=== PATIENT | male | born 1945 | race Caucasian/White ===

== ENCOUNTER → 2020-12-12 | Outpatient (CLI) | payer MEDICARE ==
--- NOTE | 2021-02-01 03:34 | ECWPNPC ---
PATIENT NAME: DANNY FLOOD SR : 1945 GENDER: MALE VISIT DATE: 12/12/2020 DISCHARGE DATE: 12/12/20840 VISIT LOCKED DATE TIME: PHYSICIAN: LENARD PALM RESOURCE: LENARD PALM REASON FOR APPOINTMENT 1. CHRONIC NECK/BACK PAIN HISTORY OF PRESENT ILLNESS GENERAL: [facility] TELEHEALTH VISIT- 75-YEAR-OLD MALE IN FOR CONSULT REGARDING CURRENT MEDICATION REGIMEN. HE CURRENTLY RATES HIS PAIN AT AN 8 OUT OF 10 AND DESCRIBES IT A CONTINUOUS NEEDLE FEELING. PATIENT'S CENTRAL PATCH WAS RECENTLY INCREASED 200 MCG DAILY. HE IS CURRENTLY BEING PRESCRIBED HYDROCODONE 10/325 MG EVERY 4 HOURS NEEDED FOR PAIN. WHEN ASKED PATIENT ADMITS THAT THE HYDROCODONE IS HELPFUL HOWEVER IT DOES NOT LAST. PATIENT WAS ALSO RECENTLY DIAGNOSED WITH STAGE IV PROSTATE CANCER. FALL RISK SCREENING: SCREENING : NO FALLS REPORTED IN THE LAST YEAR. PAIN SCREENING: PATIENT HAS A COMPLAINT OF ACUTE OR CHRONIC PAIN :YES LOCATION OF PAIN:HEAD INTENSITY OF PAIN (SCALE OF 1 TO 10):8 WHAT DOES YOUR PAIN FEEL LIKE:CONTINOUS NEEDLES DURATION:CONSTANT, AWAKENS FROM SLEEP PAIN IS INCREASED BY:OTHERS STRESS PAIN IS DECREASED BY:USE OF PAIN MEDICATIONS TREATMENT/MEDICATIONS USED TO MANAGE PAIN:OPIOIDS HYDROCODONE NURSING NOTE: -. PAIN CENTER INTAKE QUESTIONS: DO YOU HAVE A HISTORY OF MRSA? :NO DO YOU TAKE A BLOOD THINNERS? :NO DO YOU HAVE ANY BLEEDING DISORDERS? :NO ANY NEW NUMBNESS OR WEAKNESS IN YOUR LEGS OR ARMS? :NO ANY PACEMAKER,DEFIBRILLATOR, OR DORSAL COLUMN STIMULATOR? :NO DO YOU HAVE ANY RASHES OR OPEN SORES? :NO ARE YOU ALLERGIC TO IV DYE? :NO ARE YOU DIABETIC? :NO ANY NEW PROBLEMS WITH YOUR MEDICATIONS? :NO HAVE YOU RECEIVED A VACCINE IN THE PAST 30 DAYS? :NO DO YOU PLAN TO RECEIVE A VACCINE IN THE NEXT 21 DAYS? :NO DO YOU NEED ANY PRESCRIPTION? :NO DO YOU TAKE ANY IMMUNOSUPPRESSIVE MEDICATIONS? :NO IS THERE A CHANCE YOU COULD BE ? :NO ARE YOU BREAST FEEDING? :NO CURRENT MEDICATIONS TAKING XTANDI 40 MG CAPSULE 2 CAPSULES ORALLY ONCE A DAY TAKING FENTANYL 100 MCG/HR PATCH 72 HOUR 1 PATCH TO SKIN TRANSDERMAL , NOTES: 07-31-16 TAKING ALLOPURINOL 300 MG TABLET 1 TABLET ORALLY ONCE DAILY, NOTES: 08-02-16 AM TAKING ANORO ELLIPTA 62.5-25 MCG/INH AEROSOL POWDER BREATH ACTIVATED 1 PUFF INHALATION ONCE A DAY, NOTES: NONE TAKING ENALAPRIL MALEATE 20 MG TABLET 1 TABLET ORALLY TWICE DAILY, NOTES: 08-02-16 AM TAKING METOPROLOL SUCCINATE 100 MG 1 TAB ONCE DAILY, NOTES: 08-02-16 AM TAKING OMEPRAZOLE 40 MG CAPSULE DELAYED RELEASE 1 CAPSULE ORALLY TWICE DAILY, NOTES: 08-02-16 AM TAKING POTASSIUM CHLORIDE 10 MEQ PO TWICE DAILY, NOTES: 08-02-16 AM TAKING VENTOLIN HFA 108 (90 BASE) MCG/ACT AEROSOL SOLUTION 2 PUFFS NEEDED INHALATION FOUR TIMES DAILY NEEDED, NOTES: 08-02-16 PM TAKING VERAPAMIL HCL ER 180 MG TABLET EXTENDED RELEASE 1 TABLET ORALLY ONCE A DAY, NOTES: 08-02-16 AM TAKING VITAMIN B6 100 MG TABLET 1 TABLET ORALLY ONCE A DAY, NOTES: 08-02-16 TAKING VITAMIN D 96660 TABLET 1 TABLET ORALLY ONCE A WEEK, NOTES: 08-02-16 TAKING HYDROCODONE-ACETAMINOPHEN 10-325 MG TABLET 1 TABLET NEEDED ORALLY EVERY 4 HOURS NEEDED, NOTES: 08-03-16 0900 NOT-TAKING ASPIRIN 325 MG TABLET DELAYED RELEASE 1 TABLET ORALLY ONCE A DAY, NOTES: 08-03-16 8030 NOT-TAKING FLOMAX 0.4 MG CAPSULE ORALLY ONCE DAILY, NOTES: 08-02-16 NOT-TAKING HYDROCHLOROTHIAZIDE 12.5 MG TABLET 1 TABLET ORALLY ONCE A DAY, NOTES: 08-02-16 NOT-TAKING PROSCAR 5 MG TABLET 1 TABLET ORALLY ONCE A DAY, NOTES: 08-02-16 NOT-TAKING SIMVASTATIN 40 MG TABLET ORALLY ONCE A DAY, NOTES: 08-02-16 NOT-TAKING TOPAMAX 50 MG TABLET 1 TABLET ORALLY TWICE A DAY, NOTES: 08-02-16 NOT-TAKING OXYCODONE-ACETAMINOPHEN 5-325 MG TABLET 1 TABLET NEEDED ORALLY EVERY 4 HOURS NEEDED, NOTES: 07/16/16 NOT-TAKING VALIUM 10 MG TABLET 1 ORALLY 1 TAB 1HR PRE PROC. MDD1, NOTES: 07/20/16 1000 NOT-TAKING OXYCODONE HCL 10 MG TABLET 1 ORALLY 1 TAB 1HR PRE PROCEDURE MDD1, NOTES: 07/20/16 1000 NOT-TAKING NAPROXEN 500 MG TABLET 1 TABLET NEEDED ORALLY EVERY 12 HRS MEDICATION LIST REVIEWED AND RECONCILED WITH THE PATIENT PAST MEDICAL HISTORY HEADACHE, HTN, NECK PAIN, ABDOMINAL PAIN, CAD, BACK PAIN, COPD, GERD, HYPERLIPIDEMIA COMPLETELY BLOCKED RIGHT CAROTID ARTERY STAGE 4 PROSTATE CANCER ALLERGIES CIPRO AVELOX DARVOCET-N 100: HALLUCINATIONS SURGICAL HISTORY CHOLECYSTECTOMY 09/2007 REMOVAL RECTAL ABSCESS AND FISTULA 2004 CATARACT LENS LEFT EYE PROSTATE SURGERY 10/2020 FAMILY HISTORY FATHER: , DIAGNOSED WITH OTHER MALIGNANT NEOPLASM OF UNSPECIFIED SITE MOTHER: , UNSPECIFIED CEREBRAL ARTERY OCCLUSION WITH CEREBRAL INFARCTION, DIABETES 2 SON(S) , 3 DAUGHTER(S) - HEALTHY. BROTHER HAS LEUKEMIA. SOCIAL HISTORY GENERAL: TOBACCO USE ARE YOU A:FORMER SMOKER HOW LONG HAS IT BEEN SINCE YOU LAST SMOKED?5-10 YEARS VAPORNO E-CIGARETTENO LATEX QUESTIONNAIRE LATEX ALLERGY : HAVE YOU EVER DEVELOPED ANY TYPE OF REACTION AFTER HANDLING LATEX PRODUCTS SUCH RUBBER GLOVES, CONDOMS, DIAPHRAGMS, BALLOONS, SOCKS, OR UNDERWEAR?NO LATEX ALLERGY : HAVE YOU EVER DEVELOPED ANY TYPE OF REACTION DURING OR AFTER DENTAL APPOINTMENT, VAGINAL/RECTAL EXAMINATION, SURGICAL PROCEDURE, OR ANY OTHER EXPOSURE?NO LATEX RISK : HAVE YOU EVER HAD ANY DIFFICULTY BREATHING OR HIVES AFTER EATING OR HANDLING ANY FRUITS, OR VEGETABLES; SUCH KIWI, BANANAS, STONE FRUITS, OR CHESTNUTSNO LATEX RISK : DO YOU HAVE A PREVIOUS PERSONAL HISTORY OF MORE THAN NINE SURGERIES, SPINA BIFIDA, OR REPEATED CATHERIZATIONS? NO LATEX RISK : ARE YOU FREQUENTLY EXPOSED TO LATEX PRODUCTS IN YOUR OCCUPATION?NO DATE ASKED : 12/12/2020 ALCOHOL SCREENING DID YOU HAVE A DRINK CONTAINING ALCOHOL IN THE PAST YEAR?NO POINTS0 INTERPRETATIONNEGATIVE RECREATIONAL DRUG USE DRUG USE?NO PATIENT DENIES USE OF ANY ILLEGAL SUBSTANCE INCLUDING MARIJUANA OR COCAINE. CAFFEINE CAFFEINE USE?YES HOW OFTEN AND HOW MUCH? 4-5 CUPS COFFEE PER DAY LEARNING BARRIERS / SPECIAL NEEDS BARRIERS TO LEARNING?NO HEARING IMPAIRED?NO VISION IMPAIRED?NO COGNITIVELY IMPAIRED?NO READINESS TO LEARN?NO LEARNING PREFERENCES?NO LEARNING CAPABILITIES PRESENT?YES EMOTIONAL BARRIERS?NO SPECIAL DEVICES?YES :CANE, WALKER, WHEELCHAIR BRACE MAKER NEEDED?NO - PFS REFERRAL NEEDED?NO CLERGY REFERRAL NEEDED?NO PUBLIC HEALTH REFERRAL NEEDED?NO WAS THE PROVIDER NOTIFIED OF ANY PERTINENT INFO?NO ADVANCE DIRECTIVE HEALTH CARE PROXY? YES , POWER OF TOUR AGENT? NO , NAME OF HCP LEIDA FLOOD, CONTACT # FOR HCP [phone], IF YES, DO YOU HAVE A COPY WITH YOU? NO , IF NO, WOULD YOU LIKE MORE INFORMATION? NO , DO YOU HAVE A DNR? NO , LIVING WILL? NO , IF YES, DO YOU HAVE A COPY WITH YOU? NO. HOSPITALIZATION/MAJOR DIAGNOSTIC PROCEDURE NO HOSPITALIZATION HISTORY. REVIEW OF SYSTEMS CONSTITUTIONAL: ANY RECENT FEVER NO . CHILLS NO . WEIGHT CHANGE OF UNKNOWN REASONS NO . GASTROENTEROLOGY: NEW UNEXPLAINABLE CHANGES IN BOWEL CONTROL NO . CONSTIPATION NO . GENITOURINARY: ANY NEW CHANGE IN BLADDER CONTROL? NO . NEUROLOGY: NEW ONSET DIZZINESS OR NEUROLOGICAL CHANGES NOT MENTIONED NO . NEW NUMBNESS OR PAIN PATTERNS NOT MENTIONED AND PERTINENT TO TODAY'S VISIT NO . CARDIOLOGY: NEW CHEST PRESSURE NO . PATIENT DENIES NO . RESPIRATORY: UNEXPLAINABLE COUGH NO . NEW SHORTNESS OF BREATH NO . VITAL SIGNS WT 216 LBS, HT 74 IN, BMI 27.73 INDEX, REVIEWED BY: ROSITA NOT OBTAINED DUE TO TELEVISIT. NOAH HILL MA. EXAMINATION GENERAL EXAMINATION: GENERALNO ACUTE DISTRESS, WELL NOURISHED AND HYDRATED. PSYCHAPPROPRIATE MOOD AND AFFECT . ASSESSMENTS CERVICALGIA OF [id number] REGION - M54.2 (PRIMARY) TREATMENT CERVICALGIA OF [id number] REGION NOTES: 75-YEAR-OLD MALE IN FOR CONSULT REGARDING CURRENT MEDICATION REGIMEN. GIVEN PRESENTING SYMPTOMS AND RECENT INCREASE IN FENTANYL PATCH RECOMMEND STOPPING HYDROCODONE AND STARTING OXYCODONE 10/325 MG 4 TIMES A DAY. INFORMED PATIENT OF POTENTIAL SWITCHED OXYCODONE AND HE WAS AMENABLE TO THIS. GIVEN TIME TO ASK QUESTIONS AND EXPRESS CONCERNS. DISPOSITION & COMMUNICATION FOLLOW UP WITH [facility] (REASON: CHRONIC NECK PAIN) ELECTRONICALLY SIGNED BY JEISON ORTIZ ON 01/31/2021 AT 08:36 AM EST DISCLAIMER : THIS IS A VISIT SUMMARY EXTRACTED FROM THE [employer] CHART. IT IS NOT A COPY OF THE [employer] PROGRESS NOTE. DORIS
== END ==
LOC: M PAIN 15:00
PROVIDERS: ATTEND Family Medicine
DX: M54.2 Cervicalgia (principal); I10 Essential (primary) hypertension; I25.10 Atherosclerotic heart disease of native coronary artery without angina pectoris; J44.9 Chronic obstructive pulmonary disease, unspecified; K21.9 Gastro-esophageal reflux disease without esophagitis; E78.5 Hyperlipidemia, unspecified; Z87.891 Personal history of nicotine dependence; Z79.891 Long term (current) use of opiate analgesic; Z79.899 Other long term (current) drug therapy; Z88.1 Allergy status to other antibiotic agents; Z88.5 Allergy status to narcotic agent

== ENCOUNTER 2021-04-15 17:33 | Inpatient (IN) | payer MEDICARE ==
[~2021-04-15] VITALS: Ht 182.9 cm; Wt 81.0 kg
--- NOTE | 2021-04-15 20:40 | IPNPDOC ---
Text Note Date of Service The patient was seen on 04/15/21. KEVIN BATISTA MD April 15, 2021 20:40
[2021-04-15] MEDS ORDERED: METOPROLOL 5 MG/5 ML VIAL IV STA (20:54)
[2021-04-15] MEDS ORDERED: NS 500 ML IV ONE (20:55)
[2021-04-15 21:00] VITALS: BP 176/80
[2021-04-15] MEDS ORDERED: MAALOX 30 ML SUSP *UDC PO PRN (21:20)
[2021-04-15] MEDS ORDERED: MOM 30ML SUSPENSION UDC PO PRN (21:20)
[2021-04-15 21:39] LABS: BASO # 0.1 10^3/uL (0.0-0.2); BASO % 0.8 % (0.0-1.0); EOS # 0.1 10^3/uL (0.0-0.5); EOS % 1.3 % (0.0-3.0); HEMATOCRIT 39.5 % (42.0-52.0); HEMOGLOBIN 13.6 g/dl (13.5-17.5); LYMPH # 1.1 10^3/uL (1.5-5.0); LYMPH % 16.9 % (24.0-44.0); MEAN CORPUSCULAR HEMOGLOBIN 30.1 pg (27.0-33.0); MEAN CORPUSCULAR HGB CONC 34.4 g/dl (32.0-36.5); MEAN CORPUSCULAR VOLUME 87.4 fl (80.0-96.0); MONO % 15.3 % (2.0-8.0); NEUTROPHILS # 4.2 10^3/uL (1.5-8.5); NEUTROPHILS % 65.4 % (36.0-66.0); PLATELET COUNT, AUTOMATED 205 10^3/uL (150-450); RED BLOOD COUNT 4.52 10^6/uL (4.30-6.10); WHITE BLOOD COUNT 6.4 10^3/uL (4.0-10.0)
[2021-04-15 21:57] LABS: ERYTHROCYTE SEDIMENTATION RATE 18 mm/hr (0-20)
[2021-04-15] MEDS ORDERED: ZYLO300T6 PO (21:59)
[2021-04-15] MEDS ORDERED: HYDR-4517 PO (21:59)
[2021-04-15] MEDS ORDERED: HYDR-3910 PO (21:59)
[2021-04-15] MEDS ORDERED: VERA120T4 PO (21:59)
[2021-04-15] MEDS ORDERED: FENT100D25 TD (21:59)
[2021-04-15] MEDS ORDERED: ENAL20TA11 PO (21:59)
[2021-04-15] MEDS ORDERED: FLOM0.4C39 PO (21:59)
[2021-04-15] MEDS ORDERED: ASPI-1 PO (21:59)
[2021-04-15] MEDS ORDERED: VENTAER INH (21:59)
[2021-04-15] MEDS ORDERED: BICA50TA9 PO (21:59)
[2021-04-15] MEDS ORDERED: METO1TAB33 PO (21:59)
[2021-04-15] MEDS ORDERED: FURO20TA2 PO (21:59)
[2021-04-15] MEDS ORDERED: CRES10TA PO (21:59)
[2021-04-15] MEDS ORDERED: ZYTI250T PO (21:59)
[2021-04-15] MEDS ORDERED: OMEP-221 PO (21:59)
[2021-04-15] MEDS ORDERED: POTA10TA16 PO (21:59)
[2021-04-15] MEDS ORDERED: PRED5TA PO (21:59)
[2021-04-15 22:05] LABS: ALBUMIN 3.4 GM/DL (3.2-5.2); ALT/SGPT 10 U/L (12-78); BILIRUBIN,TOTAL 1.3 MG/DL (0.2-1.0); BLOOD UREA NITROGEN 17 MG/DL (7-18); C REACTIVE PROTEIN QUANTITATIV 1.03 MG/DL (0.00-0.30); CARBON DIOXIDE LEVEL 23 MEQ/L (21-32); CHLORIDE LEVEL 104 MEQ/L (98-107); CREATININE FOR GFR 0.81 MG/DL (0.70-1.30); GLOMERULAR FILTRATION RATE > 60.0 (>42); GLUCOSE, FASTING 84 MG/DL (70-100); NT-PRO BNP 1013 PG/ML (<450); POTASSIUM SERUM 3.1 MEQ/L (3.5-5.1); SODIUM LEVEL 137 MEQ/L (136-145); TROPONIN I < 0.02 NG/ML (< 0.10)
[2021-04-15] MEDS ORDERED: FENTANYL REMOVAL DOCUMENTATION MISC XX SCH (22:25)
[2021-04-15] MEDS ORDERED: ALBUTEROL 90 MCG/ACT 8GM HFA INHALER INH PRN (22:25)
[2021-04-15] MEDS ORDERED: POTASSIUM CHL PWD 20 MEQ PACKET PO ONE (22:55)
--- NOTE | 2021-04-15 23:24 | HPEPDOC ---
[facility] Medical History & Physical Date of Admission April 15, 2021 Date of Service: April 15, 2021 Attending Physician: KEVIN BATISTA MD History and Physical CHIEF COMPLAINT: Periorbital shingles HISTORY OF PRESENT ILLNESS: Patient is a 75-year-old male who presents from [facility] to treat his periorbital shingles. -Patient comes in with a past medical history of hypertension, chronic atrial fibrillationrate controlled, coronary artery disease, prostate cancer with bony metastasis, kidney tumor of uncertain behavior, cervical degenerative disc disease, GERD, perianal fistula, hyperlipidemia, who was transferred from [place] for treatment of his new onset periorbital shingles one and a half days ago. He states that he started having pain on the left side as well, which quickly moved to his eyelid and almost immediately she noticed a rash over his left periorbital area. His vision is also obstructed on the left side. Patient states no chest pain, headache, increased shortness of breath, cough, dizziness, lightheadedness. Patient did receive 1 dose of Ativan and lYRICA, at [place]. Patient will be admitted with telemetry monitoring and will be treated for periorbital shingles. PAST MEDICAL HISTORY: 1., Hypertension. 2. , COPD 3., Coronary artery disease. 4. , GERD 5. Prostatitic cancer with bony metastasis-treatment with an anti-androgens 6., Chronic atrial fibrillation, rate controlled 7., Hyperlipidemia 8., Chronic headache 9., Chronic abdomen, neck and back pain. PAST SURGICAL HISTORY: 1.. Pelvic abscess Dec 2020. 2. Cystoscopy need . 3. AnaL fistula repair November 2017. 4., Cholecystectomy November 2000 SOCIAL HISTORY: Tobacco use: Former smoker ETOH:. Occasional Illicit drug use: None Tattoos done unprofessionally:. No. IV drug use: Denies FAMILY HISTORY: Father: hypertension, heart disease, colon cancer, Mother:, Diabetes, hypertension, stroke, arthritis Brother: Cancer of the bone ALLERGIES: Please see below. REVIEW OF SYSTEMS: .General: Reports: Normal Appetite; Denies: Fatigue, Malaise Constitutional: Denies: Fever, Chills, Sweats, Weakness, Malaise Eyes: Denies: Pain. ENT: Denies: Head Aches, Sore Throat, Epistaxis Skin: Denies: Rash, Lesions, Breakdown, Nail Changes Pulmonary: Denies: Dyspnea, Cough Cardiovascular: Denies Chest Pain, Denies Palpitations Gastrointestinal: Denies: Nausea, Vomiting, diarrhea,constipation Genitourinary: Denies: Dysuria, Frequency Hematologic: Denies: Bruising, Bleeding Excessively Endocrine: Denies: Polydipsia, Polyphagia, Polyuria Musculoskeletal: Reports: Neck Pain, Back Pain Neurological: Reports: Weakness in extremities Denies: Numbness, Incoordination, Change in Speech Psych: Reports: Mood Normal; Denies: Anxiety, Depression HOME MEDICATIONS: Please see below. PHYSICAL EXAMINATION: VITAL SIGNS: pulse 112, blood pressure 163/87. GENERAL APPEARANCE: Patient is lying in the bed in moderate discomfort, but sleepy from the pain medication given at [place] and because he states he is tired from the travel. HEENT: Atraumatic, normocephalic, moist mucous membranes, PERRLA, EOMI, no conjunctival pallor, no scleral icterus. CARDIOVASCULAR: S1, S2 heard, rate, normal rhythm, regular. No murmurs appreciated. LUNGS:. Diminished breath sounds bilaterally. Bilateral basilar Crackles heard, left more than right. ABDOMEN: Tender all over. Nondistended, no organomegaly felt, no rashes or bruises, hyperactive bowel sounds.. MUSCULOSKELETAL: Multiple joint pain with no deformity.. EXTREMITIES: No cyanosis, good volume. Pulses, +1 pedal edema. NEUROLOGICAL: 3/5 motor strength in the bilateral lower extremities, sensations intact. PSYCHIATRIC:. Normal mood, flat affect. LABORATORY DATA: See below. IMAGING: None MICROBIOLOGY: Please see below. ASSESSMENT: Patient is a 75-year-old male who presents from [facility] to treat his periorbital shingles. -Patient comes in with a past medical history of hypertension, chronic atrial fibrillationrate controlled, coronary artery disease, prostate cancer with bony metastasis, kidney tumor of uncertain behavior, cervical degenerative disc disease, GERD, perianal fistula, hyperlipidemia, who was transferred from [place] for treatment of his new onset periorbital shingles one and a half days ago. He states that he started having pain on the left side as well, which quickly moved to his eyelid and almost immediately she noticed a rash over his left periorbital area. His vision is also obstructed on the left side. Patient states no chest pain, headache, increased shortness of breath, cough, dizziness, lightheadedness. Patient did receive 1 dose of Ativan and lYRICA, at [place]. . PLAN: 1. Periorbital shingles secondary to patient's immunocompromised status, status post chronic use of oral steroids for COPD versus prostate cancer: -Features supporting the diagnosis: A maculopapular rash distributed along the dermatomal area involving eyelids. Patient states he is never received Shingrix vaccine. -Patient was admitted with continuous monitoring of vitals. -Patient was given adequate pain control. -He was started on an IV dose of acyclovir 10 mg per KG per hour. -Patient will be watched and reassessed frequently to make sure there is no progression to herpetic encephalitis. -Patient's steroids were stopped temporarily- Day team needs to take note of that please. -Patient's anti-androgen therapy was also stopped. 2., COPD: Patient's home medications including troponins will be continued except oral steroids. -Oxygen therapy have been ordered to maintain a saturation of 88-92% -Patient is on a continuous pulse oximetry. 3., Hypertension . Continue with home medications. -Continue telemetry. 4. Chronic atrial fibrillation, rate controlled: -Patient is on promote telemetry. -Patient continues to be on aspirin. -He is not on any anticoagulation as per his records for unknown reasons. 5.. GERD: -Patient was put on pantoprazole 40 mg twice a day. 6.. Hyperlipidemia: -Patient continues with his home dose of statin. 7., Chronic pain neck, back and abdomen: -Patient's fentanyl patch was continued, adequate pain control is ordered. 8., Coronary artery disease: -Patient's aspirin will be continued. . DVT prophylaxis: Teds and sequentials. Subcutaneous heparin. The every 8 hours DISPOSITION: Patient will need IV acyclovir for at least 7 days , pending improvement. Vital Signs Vital Signs Date Time Temp Pulse Resp B/P (MAP) Pulse Ox O2 Delivery O2 Flow Rate FiO2 04/15/21 21:26 112 163/87 Laboratory Data Labs 24H Laboratory Tests 2 04/15/21 21:22: Immature Granulocyte % (Auto) 0.3, Neutrophils (%) (Auto) 65.4, Lymphocytes (%) (Auto) 16.9L, Monocytes (%) (Auto) 15.3H, Eosinophils (%) (Auto) 1.3, Basophils (%) (Auto) 0.8, Neutrophils # (Auto) 4.2, Lymphocytes # (Auto) 1.1L, Monocytes # (Auto) 1.0H, Eosinophils # (Auto) 0.1, Basophils # (Auto) 0.1, Nucleated Red Blood Cells % (auto) 0.0, Erythrocyte Sedimentation Rate 18, Anion Gap 10, Glomerular Filtration Rate > 60.0, Lactic Acid Level 1.2, Calcium Level 6.0L, Magnesium Level 2.0, Total Bilirubin 1.3H, Aspartate Amino Transf (AST/SGOT) 10, Alanine Aminotransferase (ALT/SGPT) 10L, Alkaline Phosphatase 258H, Troponin I < 0.02, C-Reactive Protein, Quantitative 1.03H, XH-Cbo-Z-Type Natriuretic Peptide 1013H, Total Protein 6.0L, Albumin 3.4, Albumin/Globulin Ratio 1.3 CBC/BMP Laboratory Tests 04/15/21 21:22 Microbiology Microbiology 04/15/21 Blood Culture, Received Pending Home Medications Scheduled Abiraterone Acetate (Zytiga) 250 Mg Tablet, 1,000 MG PO DAILY Allopurinol (Zyloprim) 300 Mg Tablet, 300 MG PO DAILY Aspirin (Aspirin) 325 Mg Tablet, 325 MG PO DAILY Bicalutamide (Bicalutamide) 50 Mg Tablet, 50 MG PO DAILY Enalapril Maleate (Enalapril Maleate) 20 Mg Tablet, 20 MG PO DAILY Fentanyl (Fentanyl) 100 Mcg Patch.td72, 100 MCG TD Q3D Furosemide (Furosemide) 20 Mg Tablet, 40 MG PO DAILY Hydralazine HCl (Hydralazine HCl) 25 Mg Tablet, 25 MG PO DAILY Hydrocodone/Acetaminophen (Hydrocodone-Acetamin 10-325 mg) 1 Each Tablet, 1 TAB PO Q4H Metoprolol Succinate (Metoprolol Succinate) 100 Mg Tab.er.24h, 100 MG PO DAILY Omeprazole (Omeprazole) 40 Mg Capsule.dr, 40 MG PO BID Potassium Chloride (Potassium Chloride) 10 Meq Tab.er.prt, 10 MEQ PO DAILY Prednisone (Prednisone) 5 Mg Tablet, 5 MG PO BID Rosuvastatin Calcium (Crestor) 10 Mg Tablet, 10 MG PO DAILY Tamsulosin HCl (Flomax) 0.4 Mg Capsule, 0.4 MG PO DAILY Verapamil HCl (Verapamil ER) 120 Mg Tablet.er, 120 MG PO BID Scheduled PRN Albuterol Sulfate (Ventolin Hfa) 18 Gm Hfa.aer.ad, 2 PUFFS INH QID PRN for DYSPNEA Allergies Coded Allergies: No Known Allergies (Unverified , 04/15/21) A-FIB/CHADSVASC A-FIB History Current/History of A-Fib/PAF?: Yes Current PO Anticoag Therapy: No GME ATTESTATION GME ATTESTATION My faculty preceptor for this patient encounter was physically present during the encounter and was fully available. All aspects of the patient interview, examination, medical decision making process, and medical care plan development were reviewed and approved by the faculty preceptor. The faculty preceptor is aware and concurs with the plan as stated in the body of this note and will attest to such by his/her cosignature. ATTENDING NOTE time of service 850pm is a 75 yr old w HTN, chronic hyponatremia, R carotid artery stenosis, COPD, CAD, DLP, renal mass (path ?), Afib, & Prostate CA w mets to the bones ( on opiates chronically) , who was sent from [facility] for management of periorbital shingles; on arrival he was noted to be in A fib w RVR possibly 2/2 hypokalemia. Plan: telemetry / 500ml bolus / administer IV metoprolol and start treatment dose lovenox (CHADSVASC2 Score = 3 or 4) pending Echo to r/o mitral valvuopathy prior to transitioning to a DOAC & increase the dose of his Verapamil from 120 mg BID to 360mg daily / replete his K and / start IV acyclovir, ask the day time team to consider consulting Opthalmology, rest per 's H&P Stephanie Degroot MD April 15, 2021 23:24 KEVIN BATISTA MD April 16, 2021 03:24
[2021-04-15] MEDS: D5W IV SCH (23:28)
[2021-04-15] MEDS: PANTOPRAZOLE 40MG TAB (PROTONIX) PO SCH (23:28)
[2021-04-15] MEDS: ACYCLOVIR IV SCH (23:28)
[2021-04-16] VITALS (9 sets, daily range): BP systolic 102–187; BP diastolic 54–104
[2021-04-16] MEDS: METOPROLOL 5 MG/5 ML VIAL IV SCH ×3 (01:43→01:53)
[2021-04-16] MEDS: ACETAMINOPHEN TAB 650MG DOSE (2X325MG) PO PRN (02:24)
[2021-04-16 04:12] LABS: HEMATOCRIT 35.5 % (42.0-52.0); HEMOGLOBIN 12.3 g/dl (13.5-17.5); MEAN CORPUSCULAR HEMOGLOBIN 30.3 pg (27.0-33.0); MEAN CORPUSCULAR HGB CONC 34.6 g/dl (32.0-36.5); MEAN CORPUSCULAR VOLUME 87.4 fl (80.0-96.0); PLATELET COUNT, AUTOMATED 185 10^3/uL (150-450); RED BLOOD COUNT 4.06 10^6/uL (4.30-6.10); WHITE BLOOD COUNT 5.6 10^3/uL (4.0-10.0)
[2021-04-16 04:36] LABS: ALBUMIN 2.9 GM/DL (3.2-5.2); ALT/SGPT 10 U/L (12-78); BILIRUBIN,TOTAL 1.1 MG/DL (0.2-1.0); BLOOD UREA NITROGEN 14 MG/DL (7-18); CALCIUM LEVEL 6.3 MG/DL (8.8-10.2); CARBON DIOXIDE LEVEL 21 MEQ/L (21-32); CHLORIDE LEVEL 110 MEQ/L (98-107); CREATININE FOR GFR 0.62 MG/DL (0.70-1.30); GLOMERULAR FILTRATION RATE > 60.0 (>42); GLUCOSE, FASTING 92 MG/DL (70-100); SODIUM LEVEL 139 MEQ/L (136-145); TOTAL PROTEIN 5.8 GM/DL (6.4-8.2)
[2021-04-16] MEDS: ENOXAPARIN 80MG/0.8ML SYRINGE (J1650 PER 10MG) SC SCH ×2 (04:36→17:25)
[2021-04-16] MEDS ORDERED: POTASSIUM CHLORIDE 10 MEQ SR TABLET PO ONE ×2 (05:55→07:45)
[2021-04-16] MEDS ORDERED: oxyCODONE 5MG TAB PO PRN (05:55)
[2021-04-16] MEDS ORDERED: HEPARIN SOD (PORCINE) 5000UNITS/ML 1ML VIAL/SYRINGE SC SCH (06:00)
[2021-04-16] MEDS: PANTOPRAZOLE 40MG TAB (PROTONIX) PO SCH ×2 (08:59→19:39)
[2021-04-16] MEDS: ASPIRIN 325 MG TAB PO SCH (08:59)
[2021-04-16] MEDS: METOPROLOL SUCC (TopROL XL) 100MG *XL* TAB PO SCH (09:00)
[2021-04-16] MEDS ORDERED: POTASSIUM CHLORIDE 10 MEQ SR TABLET PO SCH (09:00)
[2021-04-16] MEDS ORDERED: VERAPAMIL 120 MG SR TAB PO SCH (09:00)
[2021-04-16] MEDS: FUROSEMIDE 20 MG TAB PO SCH (09:00)
[2021-04-16] MEDS: TAMSULOSIN 0.4 MG CAP PO SCH (09:00)
[2021-04-16] MEDS: ROSUVASTATIN 10 MG TAB (CRESTOR) PO SCH (09:01)
[2021-04-16] MEDS: allopurinoL 300 MG TAB PO SCH (09:01)
[2021-04-16] MEDS: ENALAPRIL MALEATE 10 MG TAB PO SCH (09:01)
[2021-04-16] MEDS: VERAPAMIL 180MG EXTENDED RELEASE TABLET PO SCH (09:01)
[2021-04-16] MEDS: D5W IV SCH ×3 (09:02→23:47)
[2021-04-16] MEDS: ACYCLOVIR IV SCH ×3 (09:02→23:47)
[2021-04-16] MEDS: **hydrALAZINE HCL** 25 MG TAB PO SCH (09:02)
[2021-04-16] MEDS: POTASSIUM CHLORIDE 10 MEQ SR TABLET PO SCH ×2 (09:03→19:41)
[2021-04-16] MEDS: fentaNYL 100 MCG/HR PATCH TD SCH (09:10)
[2021-04-16] MEDS: BICALUTAMIDE 50 MG TAB PO SCH (11:07)
[2021-04-16] MEDS: NORCO, ANEXSIA 5/325MG TABLET (HYDROcodone/ACETAMINOPHEN) PO PRN ×4 (11:07→23:45)
[2021-04-16] MEDS ORDERED: cefTRIAXone SOD 2 GM VIAL (J0696 PER 250MG) IM SCH (12:50)
[2021-04-16] MEDS ORDERED: VANCOMYCIN HCL 1,000 MG, VIAL MATE ADAPTER 1 EACH in NS 250 ML IV SCH (12:50)
--- NOTE | 2021-04-16 13:44 | IPNPDOC ---
Text Note Date of Service The patient was seen on 04/16/21. NOTE Subjective: -Has a headache with severe pain in the L side side of forehead and some L eye discomfort -Afebrile, hemodynamically stable, breathing comfortably on room air Objective: VITAL SIGNS: see below GENERAL APPEARANCE: In moderate discomfort, otherwise alert, oriented x 3 HEENT: Atraumatic, normocephalic, moist mucous membranes. L forehead with mild erythema with slightly papular now beginning to be rising forming vesicles. L eye is injected with lots of yellow crusty discharge requiring manual opening. L eyelid swollen, also mildly erythematous. L conjunctiva has very mild chemosis. I am unable to definitively confirm if ophthalmoplegia with eye movement is p resent because he is generally uncomfortable and has a headache. No proptosis noted.R eye is normal in movement and appearance. CARDIOVASCULAR: S1, S2 heard, rate, normal rhythm, regular. No murmurs appreciated. LUNGS:Has bilateral basilar crackles posteriorly ABDOMEN: Normoactive bowel sounds, soft, NTND MUSCULOSKELETAL: Multiple joint pain with no deformity. EXTREMITIES: No cyanosis, good volume. Pulses, +1 pedal edema. NEUROLOGICAL: Cranial nerve 2 not fully tested due to pain discomfort with patient reporting diminished vision in L eye but declines diplopia or eric lack of vision. Describes it as cloudy, tears when he tries to focus, has some eye pain. R eye with normal examination. V1 of CN 5 on L face with pain on touch. otherwise rest of cranial nerve examination appears intact, except that I could not corroborate the CN 3,4,6 associated with the L eye due to discomfort. 4/5 strength throughout PSYCHIATRIC:. Normal mood, flat affect. LABORATORY DATA: WBC 5.6 Hgb 12.3 Platelets 185 Na 139 K 3 (repleted) Cr 0.62 IMAGING: None MICROBIOLOGY: Please see below. ASSESSMENT: 75-year-old M who was transferred from [facility] for periorbital shingles who certainly has L cranial nerve 5 V1 distribution early periorbital shingles however with concern for superimposed bacterial periorbital cellulitis with c/f it actual affecting the orbit and vision and so will consult [facility] ophthalmology to discuss recommendations beyond antiviral therapy and antibiotics. PLAN: 1. Periorbital shingles secondary to patient's immunocompromised status, status post chronic use of oral steroids for COPD and prostate cancer: -Continue IV acyclovir 10mg/kg Q 8 H -Start empiric vanc/ceftriaxone for potential superimposed bacterial preorbital cellulitis vs. orbital cellulitis -Consulting [facility] ophthalmology for recommendations beyond antiviral therapy and antibiotics -Will get CT of orbit with IV contrast because of lack of reliable exam with ophthalmoplegia and some chemosis -Patient's steroids were stopped given ongoing infection -Patient's anti-androgen therapy was also stopped. 2. COPD: no evidence of exacerbation -continue home mdi therapy 3. Hypertension -Continue with home medications. 4. Chronic atrial fibrillation, rate controlled: -continue home aspirin. -He is not on any anticoagulation as per his records for unclear reasons. 5. GERD: -pantoprazole 40 mg twice a day. 6. Hyperlipidemia: -Patient continues with his home dose of statin. 7. Chronic pain neck, back and abdomen: -Patient's fentanyl patch and PRN norco was continued 8. Coronary artery disease: - continue aspirin 9. Prostate CA -continue home abiraterone. Hold BID 5mg prednisone. DVT prophylaxis: Teds and sequentials. Subcutaneous heparin. The every 8 hours DISPOSITION: Patient will need IV acyclovir for at least 7 days , pending ophthalmology telephone consult with [facility]. VS,Eder, I+O VSEder, I+O Laboratory Tests 04/15/21 21:22 04/16/21 03:58 Vital Signs Date Time Temp Pulse Resp B/P (MAP) Pulse Ox O2 Delivery O2 Flow Rate FiO2 04/16/21 12:02 17 Room Air 04/16/21 09:02 149/98 04/16/21 09:01 118 04/16/21 08:00 98.1 98 I&O- Last 24 Hours up to 6 AM 04/16/21 06:00 Intake Total 815.4 ml Balance 815.4 ml MARICARMEN DRIVER MD April 16, 2021 13:44
[2021-04-16] MEDS ORDERED: ISOVUE-370 76% 100ML VIAL As Ordered ONE ×2 (13:51→16:26)
[2021-04-16] MEDS: cefTRIAXone SOD 2 GM in D5W MINI-BAG PLUS 50 ML IV SCH (14:09)
[2021-04-16] MEDS ORDERED: VANCOMYCIN HCL 1,000 MG, VIAL MATE ADAPTER 1 EACH in NS 250 ML IV ONE (15:00)
[2021-04-16] MEDS ORDERED: VANCOMYCIN HCL 750 MG, VIAL MATE ADAPTER 1 EACH in NS 250 ML IV ONE (17:00)
--- NOTE | 2021-04-16 17:08 | REP ---
INDICATION: Orbital cellulitis. COMPARISON: None. TECHNIQUE: Helical scanning is acquired following the intravenous injection of 75 mL of Isovue 370. Coronal and sagittal MPR images are generated. 3 mm axial images re-formatted. FINDINGS: The preliminary digital ordnance officer radiographs are unremarkable. The patient is edentulous. There is moderate vascular calcification in the distal internal carotid and vertebral arteries. The visualized intracranial structures are unremarkable except for some mild generalized volume loss. There is mild left frontal scalp swelling. No intraorbital soft tissue mass or abscess is seen. Maxillary sinuses are clear. Ethmoid and sphenoid sinuses are clear. Frontal sinuses are clear. Mastoid aeration is normal and symmetric. Middle ear cavities are aerated bilaterally. The bony nasal septum deviates to the right inferiorly and anteriorly with a small septal beak. IMPRESSION: Mild soft tissue swelling the left frontal and left male are periorbital soft tissues. No abscess, sinusitis, or other acute abnormality. Rightward nasal septal deviation. <Electronically signed by Sami Steele > 04/16/21 [id number]
--- NOTE | 2021-04-16 20:54 | ECGEPIP ---
[facility] Test Date: 2021-04-15 Pat Name: DANNY FLOOD Department: Room: - Gender: Male Bpm Developer: lizette : 1945 Requested By: KEVIN BATISTA Order Number: [id number] Reading MD: Addison Cifuentes Measurements Intervals [place] Rate: 120 P: CT: QRS: -6 QRSD: 86 T: 196 QT: 366 QTc: 517 Interpretive Statements Atrial fibrillation with rapid ventricular response with premature ventricular or aberrantly conducted complexes Septal infarct , age undetermined ST & T wave abnormality, consider inferolateral ischemia Comparison tracing not on file Electronically Signed on 04-16-2021 20:53:59 EDT by Addison Cifuentes
[2021-04-16] MEDS ORDERED: RAMELTEON 8 MG TAB (ROZEREM) PO PRN (23:00)
[2021-04-17] VITALS: BP 129/58
[2021-04-17] MEDS: ENOXAPARIN 80MG/0.8ML SYRINGE (J1650 PER 10MG) SC SCH (03:56)
[2021-04-17] MEDS: NORCO, ANEXSIA 5/325MG TABLET (HYDROcodone/ACETAMINOPHEN) PO PRN ×6 (03:57→22:00)
[2021-04-17 04:00] VITALS: BP 126/65
[2021-04-17 05:59] LABS: HEMATOCRIT 31.7 % (42.0-52.0); MEAN CORPUSCULAR HEMOGLOBIN 30.2 pg (27.0-33.0); MEAN CORPUSCULAR HGB CONC 34.7 g/dl (32.0-36.5); MEAN CORPUSCULAR VOLUME 87.1 fl (80.0-96.0); PLATELET COUNT, AUTOMATED 161 10^3/uL (150-450); RED BLOOD COUNT 3.64 10^6/uL (4.30-6.10)
[2021-04-17 06:29] LABS: ALT/SGPT 11 U/L (12-78); BILIRUBIN,TOTAL 0.8 MG/DL (0.2-1.0); BLOOD UREA NITROGEN 11 MG/DL (7-18); CALCIUM LEVEL 6.1 MG/DL (8.8-10.2); CARBON DIOXIDE LEVEL 24 MEQ/L (21-32); CHLORIDE LEVEL 105 MEQ/L (98-107); CREATININE FOR GFR 0.48 MG/DL (0.70-1.30); GLOMERULAR FILTRATION RATE > 60.0 (>42); GLUCOSE, FASTING 95 MG/DL (70-100); POTASSIUM SERUM 3.2 MEQ/L (3.5-5.1); SODIUM LEVEL 135 MEQ/L (136-145); TOTAL PROTEIN 5.2 GM/DL (6.4-8.2)
[2021-04-17] MEDS ORDERED: IBUPROFEN 400MG TAB PO ONE (06:30)
[2021-04-17] MEDS: VANCOMYCIN HCL 1,000 MG, VIAL MATE ADAPTER 1 EACH in NS 250 ML IV SCH ×2 (07:49→19:49)
[2021-04-17 08:00] VITALS: BP 172/76
[2021-04-17] MEDS ORDERED: POTASSIUM CHLORIDE 10 MEQ SR TABLET PO ONE (08:30)
[2021-04-17] MEDS: POTASSIUM CHLORIDE 10 MEQ SR TABLET PO SCH ×2 (09:00→21:09)
[2021-04-17] MEDS: allopurinoL 300 MG TAB PO SCH (09:00)
[2021-04-17] MEDS: ACYCLOVIR IV SCH ×2 (09:27→17:57)
[2021-04-17] MEDS: D5W IV SCH ×2 (09:27→17:57)
[2021-04-17] MEDS: PANTOPRAZOLE 40MG TAB (PROTONIX) PO SCH ×2 (09:27→21:09)
[2021-04-17] MEDS: GABAPENTIN 100 MG CAP PO SCH ×3 (09:27→21:09)
[2021-04-17] MEDS: METOPROLOL SUCC (TopROL XL) 100MG *XL* TAB PO SCH (09:28)
[2021-04-17] MEDS: **hydrALAZINE HCL** 25 MG TAB PO SCH (09:28)
[2021-04-17] MEDS: ASPIRIN 325 MG TAB PO SCH (09:28)
[2021-04-17] MEDS: ROSUVASTATIN 10 MG TAB (CRESTOR) PO SCH (09:28)
[2021-04-17] MEDS: FUROSEMIDE 20 MG TAB PO SCH (09:29)
[2021-04-17] MEDS: VERAPAMIL 180MG EXTENDED RELEASE TABLET PO SCH (09:30)
[2021-04-17] MEDS: TAMSULOSIN 0.4 MG CAP PO SCH (09:30)
[2021-04-17] MEDS: ENALAPRIL MALEATE 10 MG TAB PO SCH (09:31)
[2021-04-17] MEDS: BICALUTAMIDE 50 MG TAB PO SCH (09:35)
[2021-04-17] MEDS: ACETAMINOPHEN TAB 650MG DOSE (2X325MG) PO PRN (11:56)
[2021-04-17 12:00] VITALS: BP 90/50
--- NOTE | 2021-04-17 13:16 | IPNPDOC ---
Text Note Date of Service The patient was seen on 04/17/21. NOTE Subjective: -Headache pain persists, discussed starting him on gabapentin Objective: VITAL SIGNS: see below GENERAL APPEARANCE: Appears uncomfortable, otherwise alert, oriented x 3 HEENT: Atraumatic, normocephalic, moist mucous membranes. L forehead with mild erythema with slightly papular now beginning to be rising forming vesicles. L eye is injected with lots of yellow crusty discharge requiring manual opening. L eyelid swollen, also mildly erythematous. L conjunctiva has very mild chemosis. I am unable to definitively confirm if ophthalmoplegia with eye movement is present because he is generally uncomfortable and has a headache. No proptosis noted.R eye is normal in movement and appearance. CARDIOVASCULAR: S1, S2 heard, irregularly irregular. No murmurs appreciated. LUNGS: Trace bibasilar crackled, otherwise poor effort and diminished ABDOMEN: Normoactive bowel sounds, soft, NTND MUSCULOSKELETAL: Multiple joint pain with no deformity. EXTREMITIES: No cyanosis, good volume. Pulses, +1 pedal edema. NEUROLOGICAL: Cranial nerve 2 not fully tested due to shingles pain and discomfort on L forehead and eyelid but declines diplopia or eric vision loss. CN 3,4 and 6 intact as well as the rest of the cranial nerves 7-12, moving all extremities PSYCHIATRIC:. Normal mood, flat affect. LABORATORY DATA: WBC 4 Hgb 11 platelets 161 Na 135 K 3.2 Cr 0.48 IMAGING: CT orbit: The preliminary digital diet tech radiographs are unremarkable. The patient is edentulous. There is moderate vascular calcification in the distal internal carotid and vertebral arteries. The visualized intracranial structures are unremarkable except for some mild generalized volume loss. There is mild left frontal scalp swelling. No intraorbital soft tissue mass or abscess is seen. Maxillary sinuses are clear. Ethmoid and sphenoid sinuses are clear. Frontal sinuses are clear. Mastoid aeration is normal and symmetric. Middle ear cavities are aerated bilaterally. The bony nasal septum deviates to the right inferiorly and anteriorly with a small septal beak. IMPRESSION: Mild soft tissue swelling the left frontal and left male are periorbital soft tissues. No abscess, sinusitis, or other acute abnormality. Rightward nasal septal deviation. MICROBIOLOGY: Please see below. ASSESSMENT: 75-year-old M who was transferred from [facility] for pre-orbital shingles who certainly has L cranial nerve 5, V1 distribution early preorbital shingles however with concern for superimposed bacterial periorbital cellulitis. PLAN: 1. Preorbital shingles secondary to patient's immunocompromised status, status post chronic use of oral steroids for COPD and prostate cancer: -Continue IV acyclovir 10mg/kg Q 8 H -Continue empiric vanc/ceftriaxone for potential superimposed bacterial preorbital cellulitis vs. orbital cellulitis -CT of orbit with IV contrast showed no evidence of orbital involvement -Patient's steroids were stopped given ongoing infection -Add gabapentin for neuropathic pain to pain regimen -MRSA swab to de-escalate antibiotic therapy 2. COPD: no evidence of exacerbation -continue home mdi therapy 3. Hypertension -Continue with home medications. 4. Chronic atrial fibrillation, rate controlled: -continue home aspirin. -He is not on any anticoagulation as per his records for unclear reasons. 5. GERD: -pantoprazole 40 mg twice a day. 6. Hyperlipidemia: -Patient continues with his home dose of statin. 7. Chronic pain neck, back and abdomen: -Patient's fentanyl patch and PRN norco was continued 8. Coronary artery disease: - continue aspirin 9. Prostate CA -continue home abiraterone. Hold BID 5mg prednisone. 10. Chronic Afib with recent RVR: -telemetry -was not on AC, was started on lovenox 70 BID, will start on eliquis today -f/u TTE for valvulopathy while starting NoAC DVT prophylaxis: Teds and sequentials. On lovenox, being switched to eliquis DISPOSITION: Patient will need IV acyclovir for at least 7 days. VS,Janessae, I+O VS, Andreibone, I+O Laboratory Tests 04/17/21 05:41 Vital Signs Date Time Temp Pulse Resp B/P (MAP) Pulse Ox O2 Delivery O2 Flow Rate FiO2 04/17/21 04:27 16 04/17/21 04:00 97.6 72 126/65 (85) 100 Room Air I&O- Last 24 Hours up to 6 AM 04/17/21 06:00 Intake Total 1365.4 ml Output Total 200 ml Balance 1165.4 ml MARICARMEN DRIVER MD April 17, 2021 08:17
[2021-04-17] MEDS: cefTRIAXone SOD 2 GM in D5W MINI-BAG PLUS 50 ML IV SCH (14:48)
[2021-04-17 16:00] VITALS: BP 92/52
[2021-04-17] MEDS ORDERED: APIXABAN 5 MG TAB (ELIQUIS) PO ONE (16:00)
[2021-04-17 20:00] VITALS: BP 114/55
[2021-04-18] VITALS: BP 126/64
[2021-04-18] MEDS: D5W IV SCH ×3 (01:08→16:37)
[2021-04-18] MEDS: ACYCLOVIR IV SCH ×3 (01:08→16:37)
[2021-04-18] MEDS: NORCO, ANEXSIA 5/325MG TABLET (HYDROcodone/ACETAMINOPHEN) PO PRN ×5 (01:31→21:14)
[2021-04-18 04:00] VITALS: BP 126/60
[2021-04-18] MEDS: ACETAMINOPHEN TAB 650MG DOSE (2X325MG) PO PRN ×2 (04:31→09:19)
[2021-04-18] MEDS ORDERED: MORPHINE 4 MG/ML 1ML VIAL/SYRINGE (J2270) IV ONE ×2 (04:35→12:50)
[2021-04-18 06:27] LABS: HEMOGLOBIN 10.6 g/dl (13.5-17.5); MEAN CORPUSCULAR HEMOGLOBIN 30.4 pg (27.0-33.0); MEAN CORPUSCULAR HGB CONC 34.2 g/dl (32.0-36.5); MEAN CORPUSCULAR VOLUME 88.8 fl (80.0-96.0); PLATELET COUNT, AUTOMATED 140 10^3/uL (150-450); RED BLOOD COUNT 3.49 10^6/uL (4.30-6.10); WHITE BLOOD COUNT 3.7 10^3/uL (4.0-10.0)
[2021-04-18] MEDS: VANCOMYCIN HCL 1,000 MG, VIAL MATE ADAPTER 1 EACH in NS 250 ML IV SCH (06:29)
[2021-04-18 06:50] LABS: ALT/SGPT 16 U/L (12-78); BILIRUBIN,TOTAL 0.7 MG/DL (0.2-1.0); BLOOD UREA NITROGEN 12 MG/DL (7-18); CALCIUM LEVEL 6.6 MG/DL (8.8-10.2); CARBON DIOXIDE LEVEL 23 MEQ/L (21-32); CHLORIDE LEVEL 104 MEQ/L (98-107); CREATININE FOR GFR 0.83 MG/DL (0.70-1.30); GLOMERULAR FILTRATION RATE > 60.0 (>42); GLUCOSE, FASTING 91 MG/DL (70-100); POTASSIUM SERUM 3.5 MEQ/L (3.5-5.1); SODIUM LEVEL 136 MEQ/L (136-145); TOTAL PROTEIN 5.3 GM/DL (6.4-8.2); VANCOMYCIN LEVEL TROUGH 14.5 UG/ML (10.0-20.0)
[2021-04-18 08:00] VITALS: BP 126/65
[2021-04-18] MEDS: POTASSIUM CHLORIDE 10 MEQ SR TABLET PO SCH ×2 (09:17→21:11)
[2021-04-18] MEDS: allopurinoL 300 MG TAB PO SCH (09:17)
[2021-04-18] MEDS: VERAPAMIL 180MG EXTENDED RELEASE TABLET PO SCH (09:18)
[2021-04-18] MEDS: APIXABAN 5 MG TAB (ELIQUIS) PO SCH ×2 (09:18→21:11)
[2021-04-18] MEDS: ROSUVASTATIN 10 MG TAB (CRESTOR) PO SCH (09:18)
[2021-04-18] MEDS: ENALAPRIL MALEATE 10 MG TAB PO SCH (09:18)
[2021-04-18] MEDS: ASPIRIN 325 MG TAB PO SCH (09:18)
[2021-04-18] MEDS: GABAPENTIN 300 MG CAP PO SCH ×3 (09:18→21:11)
[2021-04-18] MEDS: TAMSULOSIN 0.4 MG CAP PO SCH (09:18)
[2021-04-18] MEDS: FUROSEMIDE 20 MG TAB PO SCH (09:19)
[2021-04-18] MEDS: PANTOPRAZOLE 40MG TAB (PROTONIX) PO SCH ×2 (09:19→21:11)
[2021-04-18] MEDS: **hydrALAZINE HCL** 25 MG TAB PO SCH (09:19)
[2021-04-18] MEDS: BICALUTAMIDE 50 MG TAB PO SCH (09:20)
[2021-04-18] MEDS: METOPROLOL SUCC (TopROL XL) 100MG *XL* TAB PO SCH (09:20)
--- NOTE | 2021-04-18 10:17 | ECHO ---
DATE OF PROCEDURE: 04/17/2021 Age: 75 Gender: Male Height: 183 cm Weight: 77 kg REFERRING PHYSICIAN: Nikki Mattson MD INDICATION: Cardiac dysrhythmia, unspecified. MEASUREMENTS: 2D Measurements: Left atrium 4.4 cm Left atrial volume index 54 cm Intraventricular septum 1.11 cm Posterior wall 0.92 cm Left ventricle diastole 5.6 cm Aortic annulus 2.1 cm Aortic root 3.8 cm Inferior vena cava 2.9 cm Doppler Measurements: No aortic stenosis No aortic regurgitation Aortic valve velocity 101 cm/s LVOT velocity 47.6 cm/s LVOT VTI 9.9 cm Very mild mitral regurgitation Mitral E velocity 105 cm/s Mitral deceleration time 172 msec Mild tricuspid regurgitation Estimated right ventricle systolic pressure 37 mmHg Estimated right atrial pressure 10 mmHg Pulmonary artery acceleration time 103 msec DESCRIPTION: Rhythm was atrial fibrillation with controlled ventricular response. This was a 2D, M-mode, color flow Doppler, and pulsed wave Doppler examination including mitral annular tissue Doppler. Image quality was fair. CONCLUSIONS: 1. Mildly dilated left ventricle at basal level. Normal LV wall thickness. Akinesis of the basal posterior LV segment with probably normal LV wall motion and wall thickening elsewhere. Mild reduction of overall LV systolic function. LVEF 50% by visual assessment. 2. Severe left atrial dilatation by left atrial volume index. 3. Moderate aortic valve sclerosis of a 3-cuspid aortic valve. No aortic stenosis or regurgitation. 4. Mild dilatation of the aortic root at the level of the sinuses of Valsalva. 5. Suggestive of mild elevation of estimated right ventricle systolic pressure. Normal right ventricle size and systolic function. 6. No pericardial effusion. MTDD
[2021-04-18 11:55] VITALS: BP 98/60
--- NOTE | 2021-04-18 12:37 | IPNPDOC ---
Text Note Date of Service The patient was seen on 04/18/21. NOTE Subjective: -Headache pain persists Objective: VITAL SIGNS: see below GENERAL APPEARANCE: Appears uncomfortable, otherwise alert, oriented x 3 HEENT: Atraumatic, normocephalic, moist mucous membranes. L forehead with mild erythema with forming vesicles now fluid filled. L eye is slightly injected, eyelid swelling has improved. L conjunctiva chemosis has improved as well. I am unable to do a proper L eye exam due to head pain. No proptosis noted. R eye is normal in movement and appearance. CARDIOVASCULAR: S1, S2 heard, irregularly irregular. No murmurs appreciated. LUNGS: Trace bibasilar crackled, otherwise poor effort and diminished ABDOMEN: Normoactive bowel sounds, soft, NTND MUSCULOSKELETAL: Multiple joint pain with no deformity. EXTREMITIES: No cyanosis, good volume. Pulses, +1 pedal edema. NEUROLOGICAL: Cranial nerve 2 not fully tested due to shingles pain and discomfort on L forehead and eyelid but declines diplopia or eric vision loss. CN 3,4 and 6 intact as well as the rest of the cranial nerves 7-12, moving all extremities PSYCHIATRIC:. Normal mood, flat affect. LABORATORY DATA: WBC 3.7 Hgb 10.6 platelets 140 Na 136 K 3.5 Cr 0.83 IMAGING: CT orbit: The preliminary digital cotton bag sewer radiographs are unremarkable. The patient is edentulous. There is moderate vascular calcification in the distal internal carotid and vertebral arteries. The visualized intracranial structures are unremarkable except for some mild generalized volume loss. There is mild left frontal scalp swelling. No intraorbital soft tissue mass or abscess is seen. Maxillary sinuses are clear. Ethmoid and sphenoid sinuses are clear. Frontal sinuses are clear. Mastoid aeration is normal and symmetric. Middle ear cavities are aerated bilaterally. The bony nasal septum deviates to the right inferiorly and anteriorly with a small septal beak. IMPRESSION: Mild soft tissue swelling the left frontal and left male are periorbital soft tissues. No abscess, sinusitis, or other acute abnormality. Rightward nasal septal deviation. MICROBIOLOGY: Please see below. ASSESSMENT: 75-year-old M who was transferred from [facility] for pre-orbital shingles who certainly has L cranial nerve 5, V1 distribution early preorbital shingles however with concern for superimposed bacterial periorbital cellulitis. PLAN: 1. Preorbital shingles secondary to patient's immunocompromised status, status post chronic use of oral steroids for COPD and prostate cancer: -Continue IV acyclovir 10mg/kg Q 8 H -Continue empiric ceftriaxone for potential superimposed bacterial preorbital cellulitis. DC vanc -CT of orbit with IV contrast showed no evidence of orbital involvement -Patient's steroids were stopped given ongoing infection -Increase gabapentin for neuropathic pain to 300mg TID, as well as 2 norcos per 4HP 2. COPD: no evidence of exacerbation -continue home mdi therapy 3. Hypertension -Continue with home medications. 4. Chronic atrial fibrillation, rate controlled: -continue home aspirin. -continue eliquis -f/u TTE 5. GERD: -pantoprazole 40 mg twice a day. 6. Hyperlipidemia: -Patient continues with his home dose of statin. 7. Chronic pain neck, back and abdomen: -Patient's fentanyl patch and PRN norco was continued 8. Coronary artery disease: - continue aspirin 9. Prostate CA -continue home abiraterone. Hold BID 5mg prednisone. 10. Chronic Afib with recent RVR: -telemetry -was not on AC, was started on lovenox 70 BID, will start on eliquis today -f/u TTE for valvulopathy while starting NoAC 11. Cr bump - will monitor for SYED given being on acyclovir. Might have to start some fluids. -daily BMP DVT prophylaxis: Teds and sequentials. On eliquis DISPOSITION: Patient will need Acyclovir for at least 7 days. VS,Fishbone, I+O VS, Fishbone, I+O Laboratory Tests 04/18/21 06:04 Vital Signs Date Time Temp Pulse Resp B/P (MAP) Pulse Ox O2 Delivery O2 Flow Rate FiO2 04/18/21 08:00 97.6 72 16 126/65 (85) 100 Room Air I&O- Last 24 Hours up to 6 AM 04/18/21 06:00 Intake Total 970.8 ml Output Total 1300 ml Balance -329.2 ml MARICARMEN DRIVER MD April 18, 2021 09:07
[2021-04-18] MEDS: LIDOCAINE 5% (LIDODERM) PATCH TD SCH (13:05)
[2021-04-18] MEDS: cefTRIAXone SOD 2 GM in D5W MINI-BAG PLUS 50 ML IV SCH (14:34)
[2021-04-18 16:00] VITALS: BP 96/51
[2021-04-18 21:00] VITALS: BP 132/62
[2021-04-18] MEDS: **NOTE PATIENT COMMENT** MISC XX SCH (21:00)
[2021-04-18] MEDS ORDERED: AMITRIPTYLINE 10MG TABLET PO SCH (21:00)
[2021-04-19] VITALS (21 sets, daily range): BP systolic 69–183; BP diastolic 42–81
[2021-04-19] MEDS: D5W IV SCH ×4 (00:35→23:49)
[2021-04-19] MEDS: ACYCLOVIR IV SCH ×4 (00:35→23:49)
[2021-04-19] MEDS: NORCO, ANEXSIA 5/325MG TABLET (HYDROcodone/ACETAMINOPHEN) PO PRN ×3 (01:41→09:55)
[2021-04-19] MEDS ORDERED: MORPHINE 4 MG/ML 1ML VIAL/SYRINGE (J2270) IV ONE (04:45)
[2021-04-19 05:38] LABS: HEMATOCRIT 32.3 % (42.0-52.0); HEMOGLOBIN 10.9 g/dl (13.5-17.5); MEAN CORPUSCULAR HEMOGLOBIN 30.1 pg (27.0-33.0); MEAN CORPUSCULAR HGB CONC 33.7 g/dl (32.0-36.5); MEAN CORPUSCULAR VOLUME 89.2 fl (80.0-96.0); PLATELET COUNT, AUTOMATED 157 10^3/uL (150-450); RED BLOOD COUNT 3.62 10^6/uL (4.30-6.10); WHITE BLOOD COUNT 5.5 10^3/uL (4.0-10.0)
[2021-04-19 06:08] LABS: ALT/SGPT 16 U/L (12-78); BILIRUBIN,TOTAL 0.6 MG/DL (0.2-1.0); BLOOD UREA NITROGEN 11 MG/DL (7-18); CARBON DIOXIDE LEVEL 22 MEQ/L (21-32); CHLORIDE LEVEL 104 MEQ/L (98-107); CREATININE FOR GFR 0.56 MG/DL (0.70-1.30); GLOMERULAR FILTRATION RATE > 60.0 (>42); GLUCOSE, FASTING 84 MG/DL (70-100); POTASSIUM SERUM 3.6 MEQ/L (3.5-5.1); SODIUM LEVEL 134 MEQ/L (136-145); TOTAL PROTEIN 5.3 GM/DL (6.4-8.2)
[2021-04-19] MEDS: FUROSEMIDE 20 MG TAB PO SCH (08:10)
[2021-04-19] MEDS: VERAPAMIL 180MG EXTENDED RELEASE TABLET PO SCH (08:10)
[2021-04-19] MEDS: ACETAMINOPHEN TAB 650MG DOSE (2X325MG) PO PRN (08:10)
[2021-04-19] MEDS: ASPIRIN 325 MG TAB PO SCH (08:10)
[2021-04-19] MEDS: ROSUVASTATIN 10 MG TAB (CRESTOR) PO SCH (08:10)
[2021-04-19] MEDS: METOPROLOL SUCC (TopROL XL) 100MG *XL* TAB PO SCH (08:11)
[2021-04-19] MEDS: allopurinoL 300 MG TAB PO SCH (08:11)
[2021-04-19] MEDS: GABAPENTIN 300 MG CAP PO SCH (08:11)
[2021-04-19] MEDS: BICALUTAMIDE 50 MG TAB PO SCH (08:11)
[2021-04-19] MEDS: PANTOPRAZOLE 40MG TAB (PROTONIX) PO SCH ×2 (08:11→20:18)
[2021-04-19] MEDS: POTASSIUM CHLORIDE 10 MEQ SR TABLET PO SCH ×2 (08:11→20:18)
[2021-04-19] MEDS: APIXABAN 5 MG TAB (ELIQUIS) PO SCH ×2 (08:11→20:18)
[2021-04-19] MEDS: TAMSULOSIN 0.4 MG CAP PO SCH (08:12)
[2021-04-19] MEDS: LIDOCAINE 5% (LIDODERM) PATCH TD SCH (08:12)
[2021-04-19] MEDS: fentaNYL 100 MCG/HR PATCH TD SCH (08:13)
[2021-04-19 09:42] LABS: MAGNESIUM LEVEL 1.8 MG/DL (1.8-2.4)
[2021-04-19] MEDS ORDERED: NS 1,000 ML IV SCH (12:50)
[2021-04-19] MEDS ORDERED: SODIUM CHLORIDE 0.9% 500 ML IV ONE (12:50)
--- NOTE | 2021-04-19 12:53 | IPNPDOC ---
Text Note Date of Service The patient was seen on 04/19/21. NOTE Subjective: -Headache pain persists, refuses lidocaine patch. Required morphine 3mg IV overnight Objective: VITAL SIGNS: see below GENERAL APPEARANCE: Appears uncomfortable, otherwise alert, oriented x 3 HEENT: Atraumatic, normocephalic, moist mucous membranes. L forehead with mild erythema with forming vesicles now fluid filled. L eye is slightly injected, eyelid swelling has improved. L conjunctiva chemosis has improved as well. I am unable to do a proper L eye exam due to head pain. No proptosis noted. R eye is normal in movement and appearance. CARDIOVASCULAR: S1, S2 heard, irregularly irregular. No murmurs appreciated. LUNGS: Trace bibasilar crackled, otherwise poor effort and diminished ABDOMEN: Normoactive bowel sounds, soft, NTND MUSCULOSKELETAL: Multiple joint pain with no deformity. EXTREMITIES: No cyanosis, good volume. Pulses, +1 pedal edema. NEUROLOGICAL: Cranial nerve 2 not fully tested due to shingles pain and discomfort on L forehead and eyelid but declines diplopia or eric vision loss. CN 3,4 and 6 intact as well as the rest of the cranial nerves 7-12, moving all extremities PSYCHIATRIC:. Normal mood, flat affect. LABORATORY DATA: WBC 5.5 Hgb 10.9 platelets 157 Na 134 K 3.6 Cr 0.56 IMAGING: CT orbit: The preliminary digital payroll officer radiographs are unremarkable. The patient is edentulous. There is moderate vascular calcification in the distal internal carotid and vertebral arteries. The visualized intracranial structures are unremarkable except for some mild generalized volume loss. There is mild left frontal scalp swelling. No intraorbital soft tissue mass or abscess is seen. Maxillary sinuses are clear. Ethmoid and sphenoid sinuses are clear. Frontal sinuses are clear. Mastoid aeration is normal and symmetric. Middle ear cavities are aerated bilaterally. The bony nasal septum deviates to the right inferiorly and anteriorly with a small septal beak. IMPRESSION: Mild soft tissue swelling the left frontal and left male are periorbital soft tissues. No abscess, sinusitis, or other acute abnormality. Rightward nasal septal deviation. TTE: 1. Mildly dilated left ventricle at basal level. Normal LV wall thickness. Akinesis of the basal posterior LV segment with probably normal LV wall motion and wall thickening elsewhere. Mild reduction of overall LV systolic function. LVEF 50% by visual assessment. 2. Severe left atrial dilatation by left atrial volume index. 3. Moderate aortic valve sclerosis of a 3-cuspid aortic valve. No aortic stenosis or regurgitation. 4. Mild dilatation of the aortic root at the level of the sinuses of Valsalva. 5. Suggestive of mild elevation of estimated right ventricle systolic pressure.Normal right ventricle size and systolic function. 6. No pericardial effusion. MICROBIOLOGY: Please see below. ASSESSMENT: 75-year-old M who was transferred from [facility] for pre-orbital shingles who certainly has L cranial nerve 5, V1 distribution early preorbital shingles however with concern for superimposed bacterial periorbital cellulitis. PLAN: 1. Preorbital shingles secondary to patient's immunocompromised status, status post chronic use of oral steroids for COPD and prostate cancer: -Continue IV acyclovir 10mg/kg Q 8 H, day 3 -Continue empiric ceftriaxone for potential superimposed bacterial preorbital cellulitis. Day 2 -CT of orbit with IV contrast showed no evidence of orbital involvement -Patient's steroids were stopped given ongoing infection -Increase gabapentin for neuropathic pain to 300mg TID, as well as 2 norcos per 4HP 2. COPD: no evidence of exacerbation -continue home mdi therapy 3. Hypertension -Continue with home medications. 4. Chronic atrial fibrillation, rate controlled: -continue home aspirin. -continue eliquis 5. GERD: -pantoprazole 40 mg twice a day. 6. Hyperlipidemia: -Patient continues with his home dose of statin. 7. Chronic pain neck, back and abdomen: -Patient's fentanyl patch and PRN norco was continued 8. Coronary artery disease: - continue aspirin 9. Prostate CA -continue home abiraterone. Hold BID 5mg prednisone. 10. Chronic Afib with recent RVR: -telemetry -was not on AC, was started on lovenox 70 BID, will start on eliquis today -f/u TTE for valvulopathy while starting NoAC 11. Cr bump - will monitor for SYED given being on acyclovir. Might have to start some fluids. -daily BMP DVT prophylaxis: Teds and sequentials. On eliquis DISPOSITION: Patient will need Acyclovir for at least 7 days. VS,Fishbone, I+O VS, Fishbone, I+O Laboratory Tests 04/19/21 05:06 Vital Signs Date Time Temp Pulse Resp B/P (MAP) Pulse Ox O2 Delivery O2 Flow Rate FiO2 04/19/21 08:13 18 04/19/21 08:10 87 183/81 04/19/21 07:58 98.9 93 Room Air I&O- Last 24 Hours up to 6 AM 04/19/21 06:00 Intake Total 1165.4 ml Output Total 750 ml Balance 415.4 ml MARICARMEN DRIVER MD April 19, 2021 08:46
[2021-04-19] MEDS: cefTRIAXone SOD 2 GM in D5W MINI-BAG PLUS 50 ML IV SCH (14:40)
[2021-04-19] MEDS: GABAPENTIN 400MG CAP PO SCH ×2 (16:05→20:17)
[2021-04-19] MEDS: AMITRIPTYLINE 25MG TABLET PO SCH (20:18)
[2021-04-19] MEDS: **NOTE PATIENT COMMENT** MISC XX SCH (20:21)
[2021-04-20] VITALS: BP 140/65
[2021-04-20] MEDS: ACETAMINOPHEN TAB 650MG DOSE (2X325MG) PO PRN ×2 (00:09→05:31)
[2021-04-20 05:00] VITALS: BP 148/65
[2021-04-20 07:21] LABS: HEMATOCRIT 30.7 % (42.0-52.0); HEMOGLOBIN 10.5 g/dl (13.5-17.5); MEAN CORPUSCULAR HEMOGLOBIN 30.3 pg (27.0-33.0); MEAN CORPUSCULAR HGB CONC 34.2 g/dl (32.0-36.5); MEAN CORPUSCULAR VOLUME 88.7 fl (80.0-96.0); PLATELET COUNT, AUTOMATED 165 10^3/uL (150-450); RED BLOOD COUNT 3.46 10^6/uL (4.30-6.10); WHITE BLOOD COUNT 6.1 10^3/uL (4.0-10.0)
[2021-04-20 07:43] LABS: ALBUMIN 2.8 GM/DL (3.2-5.2); ALT/SGPT 22 U/L (12-78); BILIRUBIN,TOTAL 0.5 MG/DL (0.2-1.0); BLOOD UREA NITROGEN 12 MG/DL (7-18); CALCIUM LEVEL 6.7 MG/DL (8.8-10.2); CARBON DIOXIDE LEVEL 24 MEQ/L (21-32); CHLORIDE LEVEL 106 MEQ/L (98-107); CREATININE FOR GFR 0.67 MG/DL (0.70-1.30); GLOMERULAR FILTRATION RATE > 60.0 (>42); GLUCOSE, FASTING 106 MG/DL (70-100); POTASSIUM SERUM 3.1 MEQ/L (3.5-5.1); SODIUM LEVEL 136 MEQ/L (136-145); TOTAL PROTEIN 5.8 GM/DL (6.4-8.2)
[2021-04-20 08:00] VITALS: BP 149/66
[2021-04-20] MEDS ORDERED: POTASSIUM CHLORIDE 10 MEQ SR TABLET PO ONE (08:30)
[2021-04-20] MEDS: APIXABAN 5 MG TAB (ELIQUIS) PO SCH ×2 (09:14→20:24)
[2021-04-20] MEDS: TAMSULOSIN 0.4 MG CAP PO SCH (09:14)
[2021-04-20] MEDS: ROSUVASTATIN 10 MG TAB (CRESTOR) PO SCH (09:15)
[2021-04-20] MEDS: PANTOPRAZOLE 40MG TAB (PROTONIX) PO SCH ×2 (09:16→20:24)
[2021-04-20] MEDS: VERAPAMIL 180MG EXTENDED RELEASE TABLET PO SCH (09:16)
[2021-04-20] MEDS: METOPROLOL SUCC (TopROL XL) 50MG **XL** TAB PO SCH (09:16)
[2021-04-20] MEDS: GABAPENTIN 400MG CAP PO SCH ×3 (09:16→20:24)
[2021-04-20] MEDS: POTASSIUM CHLORIDE 10 MEQ SR TABLET PO SCH ×2 (09:17→20:24)
[2021-04-20] MEDS: ASPIRIN 325 MG TAB PO SCH (09:17)
[2021-04-20] MEDS: BICALUTAMIDE 50 MG TAB PO SCH (09:17)
[2021-04-20] MEDS: allopurinoL 300 MG TAB PO SCH (09:17)
[2021-04-20] MEDS: ACYCLOVIR IV SCH ×3 (09:18→23:25)
[2021-04-20] MEDS: D5W IV SCH ×3 (09:18→23:25)
[2021-04-20] MEDS: LIDOCAINE 5% (LIDODERM) PATCH TD SCH (09:22)
[2021-04-20] MEDS: NORCO, ANEXSIA 5/325MG TABLET (HYDROcodone/ACETAMINOPHEN) PO PRN ×3 (09:52→22:51)
--- NOTE | 2021-04-20 11:52 | IPNPDOC ---
Text Note Date of Service The patient was seen on 04/20/21. NOTE Subjective: -Headache pain persists, but discussed that I cannot continue to add more narcotic therapies and have to prioritize neuropathic pain medications. Also he had a hypotensive somnolent episode yesterday afternoon 2/2 narcotic therapy. Agreed to keep only his baseline Q4HP narco with otherwise gabapentin, amitriptyline and lidocaine patches. Objective: VITAL SIGNS: see below GENERAL APPEARANCE: Appears uncomfortable, otherwise alert, oriented x 3 HEENT: Atraumatic, normocephalic, moist mucous membranes. L forehead with mild erythema with forming vesicles now fluid filled. L eye is injected, eyelid swelling has improved. L conjunctiva chemosis is stable. No proptosis noted. R eye is normal in movement and appearance. CARDIOVASCULAR: S1, S2 heard, irregularly irregular. No murmurs appreciated. LUNGS: Trace bibasilar crackled, otherwise poor effort and diminished ABDOMEN: Normoactive bowel sounds, soft, NTND MUSCULOSKELETAL: Multiple joint pain with no deformity. EXTREMITIES: No cyanosis, good volume. Pulses, +1 pedal edema. NEUROLOGICAL: Cranial nerve 2 not fully tested due to shingles pain and discomfort on L forehead and eyelid but declines diplopia or eric vision loss. CN 3,4 and 6 intact as well as the rest of the cranial nerves 7-12, moving all extremities PSYCHIATRIC:. Normal mood, flat affect. LABORATORY DATA: stable K 3.1 repleted will check mag IMAGING: CT orbit: The preliminary digital airline station agent radiographs are unremarkable. The patient is edentulous. There is moderate vascular calcification in the distal internal carotid and vertebral arteries. The visualized intracranial structures are unremarkable except for some mild generalized volume loss. There is mild left frontal scalp swelling. No intraorbital soft tissue mass or abscess is seen. Maxillary sinuses are clear. Ethmoid and sphenoid sinuses are clear. Frontal sinuses are clear. Mastoid aeration is normal and symmetric. Middle ear cavities are aerated bilaterally. The bony nasal septum deviates to the right inferiorly and anteriorly with a small septal beak. IMPRESSION: Mild soft tissue swelling the left frontal and left male are periorbital soft tissues. No abscess, sinusitis, or other acute abnormality. Rightward nasal septal deviation. TTE: 1. Mildly dilated left ventricle at basal level. Normal LV wall thickness. Akinesis of the basal posterior LV segment with probably normal LV wall motion and wall thickening elsewhere. Mild reduction of overall LV systolic function. LVEF 50% by visual assessment. 2. Severe left atrial dilatation by left atrial volume index. 3. Moderate aortic valve sclerosis of a 3-cuspid aortic valve. No aortic st enosis or regurgitation. 4. Mild dilatation of the aortic root at the level of the sinuses of Valsalva. 5. Suggestive of mild elevation of estimated right ventricle systolic pressure.Normal right ventricle size and systolic function. 6. No pericardial effusion. MICROBIOLOGY: Please see below. ASSESSMENT: 75-year-old M who was transferred from [facility] for pre-orbital shingles who certainly has L cranial nerve 5, V1 distribution early preorbital shingles however with concern for superimposed bacterial periorbital cellulitis. PLAN: 1. Preorbital shingles secondary to patient's immunocompromised status, status post chronic use of oral steroids for COPD and prostate cancer: -Continue IV acyclovir 10mg/kg Q 8 H, day 4 -Continue empiric ceftriaxone for potential superimposed bacterial preorbital cellulitis. Day 4 -CT of orbit with IV contrast showed no evidence of orbital involvement -Patient's steroids were stopped given ongoing infection -Gabapentin for neuropathic pain at 400mg TID, elavil 25 QHS, lidocaine patch, as well as 2 norcos per 4HP per home script 2. COPD: no evidence of exacerbation -continue home mdi therapy 3. Hypertension -Continue with home medications. 4. Chronic atrial fibrillation, rate controlled: -continue home aspirin. -continue eliquis 5. GERD: -pantoprazole 40 mg twice a day. 6. Hyperlipidemia: -Patient continues with his home dose of statin. 7. Chronic pain neck, back and abdomen: -Patient's fentanyl patch and PRN norco was continued 8. Coronary artery disease: - continue aspirin 9. Prostate CA -continue home abiraterone. Hold BID 5mg prednisone. 10. Chronic Afib with recent RVR: -telemetry -continue eliquis -TTE per above DVT prophylaxis: Teds and sequentials. On eliquis DISPOSITION: Patient will need Acyclovir for at least 7 days. Medsurg VS,Fishbone, I+O VS, Fishbone, I+O Laboratory Tests 04/20/21 07:04 Vital Signs Date Time Temp Pulse Resp B/P (MAP) Pulse Ox O2 Delivery O2 Flow Rate FiO2 04/20/21 05:00 98.7 83 20 148/65 (92) 97 Room Air I&O- Last 24 Hours up to 6 AM 04/20/21 06:00 Intake Total 867 ml Output Total 1025 ml Balance -158 ml MARICARMEN DRIVER MD April 20, 2021 08:37
[2021-04-20] MEDS: CEPHALEXIN 250MG CAPSULE PO SCH ×3 (13:12→23:25)
[2021-04-20 20:00] VITALS: BP 121/59
[2021-04-20] MEDS: AMITRIPTYLINE 25MG TABLET PO SCH (20:24)
[2021-04-20] MEDS: **NOTE PATIENT COMMENT** MISC XX SCH (20:25)
[2021-04-21] MEDS: NORCO, ANEXSIA 5/325MG TABLET (HYDROcodone/ACETAMINOPHEN) PO PRN ×2 (04:48→08:56)
[2021-04-21] MEDS: CEPHALEXIN 250MG CAPSULE PO SCH ×2 (05:50→13:12)
[2021-04-21 08:30] VITALS: BP 152/72
[2021-04-21] MEDS: LIDOCAINE 5% (LIDODERM) PATCH TD SCH (08:33)
[2021-04-21] MEDS: ASPIRIN 325 MG TAB PO SCH (08:33)
[2021-04-21] MEDS: TAMSULOSIN 0.4 MG CAP PO SCH (08:35)
[2021-04-21] MEDS: ROSUVASTATIN 10 MG TAB (CRESTOR) PO SCH (08:35)
[2021-04-21] MEDS: PANTOPRAZOLE 40MG TAB (PROTONIX) PO SCH (08:35)
[2021-04-21] MEDS: APIXABAN 5 MG TAB (ELIQUIS) PO SCH (08:35)
[2021-04-21] MEDS: BICALUTAMIDE 50 MG TAB PO SCH (08:35)
[2021-04-21] MEDS: allopurinoL 300 MG TAB PO SCH (08:35)
[2021-04-21] MEDS: GABAPENTIN 400MG CAP PO SCH ×2 (08:35→15:25)
[2021-04-21 08:36] VITALS: BP 152/72
[2021-04-21] MEDS: VERAPAMIL 180MG EXTENDED RELEASE TABLET PO SCH (08:36)
[2021-04-21] MEDS: METOPROLOL SUCC (TopROL XL) 50MG **XL** TAB PO SCH (08:36)
[2021-04-21] MEDS: POTASSIUM CHLORIDE 10 MEQ SR TABLET PO SCH (08:36)
[2021-04-21 09:41] LABS: HEMOGLOBIN 10.8 g/dl (13.5-17.5); MEAN CORPUSCULAR HGB CONC 33.8 g/dl (32.0-36.5); MEAN CORPUSCULAR VOLUME 88.9 fl (80.0-96.0); PLATELET COUNT, AUTOMATED 178 10^3/uL (150-450); WHITE BLOOD COUNT 5.3 10^3/uL (4.0-10.0)
[2021-04-21 10:02] LABS: BLOOD UREA NITROGEN 9 MG/DL (7-18); CALCIUM LEVEL 6.9 MG/DL (8.8-10.2); CARBON DIOXIDE LEVEL 22 MEQ/L (21-32); CHLORIDE LEVEL 108 MEQ/L (98-107); CREATININE FOR GFR 0.49 MG/DL (0.70-1.30); GLOMERULAR FILTRATION RATE > 60.0 (>42); GLUCOSE, FASTING 96 MG/DL (70-100); POTASSIUM SERUM 3.6 MEQ/L (3.5-5.1); SODIUM LEVEL 138 MEQ/L (136-145)
--- NOTE | 2021-04-21 10:44 | IPNPDOC ---
Text Note Date of Service The patient was seen on 04/21/21. NOTE Subjective: -Pain is improving but is still present. Objective: VITAL SIGNS: see below GENERAL APPEARANCE: Appears uncomfortable, otherwise alert, oriented x 3 HEENT: Atraumatic, normocephalic, moist mucous membranes. L forehead with vesicles now drying out and scabbing over. L eye is injected, eyelid swelling has much improved. L conjunctiva chemosis is resolving. No proptosis noted. R eye is normal in movement and appearance. CARDIOVASCULAR: S1, S2 heard, irregularly irregular. No murmurs appreciated. LUNGS: Trace bibasilar crackles ABDOMEN: Normoactive bowel sounds, soft, NTND MUSCULOSKELETAL: Multiple joint pain with no deformity. EXTREMITIES: No cyanosis, good volume. Pulses, +1 pedal edema. NEUROLOGICAL: Cranial nerve 2 not fully tested due to shingles pain and discomfort on L forehead and eyelid but declines diplopia or eric vision loss. CN 3,4 and 6 intact as well as the rest of the cranial nerves 7-12, moving all extremities PSYCHIATRIC:. Normal mood, flat affect. LABORATORY DATA: Reviewed, stable IMAGING: CT orbit: The preliminary digital chief guard radiographs are unremarkable. The patient is edentulous. There is moderate vascular calcification in the distal internal carotid and vertebral arteries. The visualized intracranial structures are unremarkable except for some mild generalized volume loss. There is mild left frontal scalp swelling. No intraorbital soft tissue mass or abscess is seen. Maxillary sinuses are clear. Ethmoid and sphenoid sinuses are clear. Frontal sinuses are clear. Mastoid aeration is normal and symmetric. Middle ear cavities are aerated bilaterally. The bony nasal septum deviates to the right inferiorly and anteriorly with a small septal beak. IMPRESSION: Mild soft tissue swelling the left frontal and left male are periorbital soft tissues. No abscess, sinusitis, or other acute abnormality. Rightward nasal septal deviation. TTE: 1. Mildly dilated left ventricle at basal level. Normal LV wall thickness. Akinesis of the basal posterior LV segment with probably normal LV wall motion and wall thickening elsewhere. Mild reduction of overall LV systolic function. LVEF 50% by visual assessment. 2. Severe left atrial dilatation by left atrial volume index. 3. Moderate aortic valve sclerosis of a 3-cuspid aortic valve. No aortic stenosis or regurgitation. 4. Mild dilatation of the aortic root at the level of the sinuses of Valsalva. 5. Suggestive of mild elevation of estimated right ventricle systolic pressure.Normal right ventricle size and systolic function. 6. No pericardial effusion. MICROBIOLOGY: Please see below. ASSESSMENT: 75-year-old M who was transferred from [facility] for pre-orbital shingles who certainly has L cranial nerve 5, V1 distribution early preorbital shingles however with concern for superimposed bacterial periorbital cellulitis. PLAN: 1. Preorbital shingles secondary to patient's immunocompromised status, status post chronic use of oral steroids for COPD and prostate cancer c/b conjunctivitis: -Will now switchf from IV acyclovir 10mg/kg Q 8 H to oral valcyclovir 1g Q8H day 5 of treatment -Now on oral keflex for potential superimposed bacterial preorbital cellulitis. Day 5 -CT of orbit with IV contrast showed no evidence of orbital involvement -Patient's steroids were stopped given ongoing infection -Gabapentin for neuropathic pain at 400mg TID, elavil 25 QHS, lidocaine patch, as well as 2 norcos per 4HP per home script 2. COPD: no evidence of exacerbation -continue home mdi therapy 3. Hypertension -Continue with home medications. 4. Chronic atrial fibrillation, rate controlled: -continue home aspirin. -continue eliquis 5. GERD: -pantoprazole 40 mg twice a day. 6. Hyperlipidemia: -Patient continues with his home dose of statin. 7. Chronic pain neck, back and abdomen: -Patient's fentanyl patch and PRN norco was continued 8. Coronary artery disease: - continue aspirin 9. Prostate CA -continue home abiraterone. Hold BID 5mg prednisone. 10. Chronic Afib with recent RVR: -telemetry -continue eliquis -TTE per above DVT prophylaxis: Teds and sequentials. On eliquis DISPOSITION: Patient will need Acyclovir for at least 7 days. Medsurg. PT/OT for HSE VS,Fishbone, I+O VS, Fishbone, I+O Vital Signs Date Time Temp Pulse Resp B/P (MAP) Pulse Ox O2 Delivery O2 Flow Rate FiO2 04/21/21 05:18 18 Room Air 04/20/21 20:00 99.1 82 121/59 (79) 96 I&O- Last 24 Hours up to 6 AM 04/21/21 06:00 Intake Total 360 ml Output Total 1000 ml Balance -640 ml MARICARMEN DRIVER MD April 21, 2021 08:38
[2021-04-21] MEDS ORDERED: VALA500T5 PO (11:40)
[2021-04-21] MEDS ORDERED: AMIT25TA17 PO (11:40)
[2021-04-21] MEDS ORDERED: GABA-1171 PO (11:40)
[2021-04-21] MEDS ORDERED: ELIQ5TAB PO (11:40)
[2021-04-21] MEDS ORDERED: LIDO5TD TD (11:40)
--- NOTE | 2021-04-21 11:47 | DS.PDOC ---
Discharge Summary General Date of Admission April 15, 2021 at 20:30 Date of Discharge 04/21/2021 Attending Physician: MARICARMEN DRIVER MD Discharge Summary PROCEDURES PERFORMED DURING STAY: None ADMITTING DIAGNOSES: Herpes zoster infection Pre-orbital cellulitis Conjunctivitis DISCHARGE DIAGNOSES: Herpes zoster ophthalmicus - L sided V1 distribution of cranial nerve 5 Pre-orbital cellulitis L Conjunctivitis Acute on chronic headaches Hypertension COPD Coronary artery disease. 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 HISTORY OF PRESENT ILLNESS: 75-year-old M with a history of hypertension, chronic atrial fibrillationrate controlled, coronary artery disease, prostate cancer with bony metastasis, kidney tumor of uncertain behavior, cervical degenerative disc disease, GERD, perianal fistula, hyperlipidemia who was transferred fro [facility] for L sided V1 distribution periorbital shingles because they did not have IV acyclovir inhouse. On presentation he reported that he started having pain on the left upper head which quickly moved to his eyelid and almost immediately noticed a rash over his left periorbital area with vision disturbance on the left side and so presented to the ED. HOSPITAL COURSE: On arrival to [facility] he was started on IV acyclovir. On day 2, due to pain, chemosis, erythema and discharge I was not able to perform a reliable examination and therefore ordered a CT of the orbit with contrast to r/o orbital involvement that would have prompted transfer for prompt ophthalmology evaluation. The CT of the orbit was negative for orbital involvement and so I continued him on IV acyclovir but also added on antibiotics for superimposed associated cellulitis. His course was c/b severe herpetic neuralgia for which he required addition of neuropathic medications and escalation of narcotic therapy that was c/b transient metabolic iatrogenic encephalopathy due to sedating medications. The pain eventually started to improve, the lesion crusted over, vision improved and the L eye swelling improved and erythema is beginning to improve. He is now being discharged home on oral valacyclovir with close PCP follow up. Of note, Mr. Flowers has known chronic atrial fibrillation but was not on anticoagulation. I started him on eliquis this admission and he tolerated it well without evidence of bleeding or drop in H/H. DISCHARGE MEDICATIONS: Please see below. ALLERGIES: Please see below. PHYSICAL EXAMINATION ON DISCHARGE: VITAL SIGNS: Please see below. VITAL SIGNS: see below GENERAL APPEARANCE: Appears uncomfortable, otherwise alert, oriented x 3 HEENT: Atraumatic, normocephalic, moist mucous membranes. L forehead with vesicles now drying out and scabbing over. L eye is injected, eyelid swelling has much improved. L conjunctiva chemosis is resolving. No proptosis noted. R eye is normal in movement and appearance. CARDIOVASCULAR: S1, S2 heard, irregularly irregular. No murmurs appreciated. LUNGS: Trace bibasilar crackles ABDOMEN: Normoactive bowel sounds, soft, NTND MUSCULOSKELETAL: Multiple joint pain with no deformity. EXTREMITIES: No cyanosis, good volume. Pulses, +1 pedal edema. NEUROLOGICAL: Cranial nerve 2 not fully tested due to shingles pain and discomfort on L forehead and eyelid but declines diplopia or eric vision loss. CN 3,4 and 6 intact as well as the rest of the cranial nerves 7-12, moving all extremities PSYCHIATRIC:. Normal mood, flat affect. LABORATORY DATA: Please see below IMAGING: CT orbit: The preliminary digital telecom specialist radiographs are unremarkable. The patient is edentulous. There is moderate vascular calcification in the distal internal carotid and vertebral arteries. The visualized intracranial structures are unremarkable except for some mild generalized volume loss. There is mild left frontal scalp swelling. No intraorbital soft tissue mass or abscess is seen. Maxillary sinuses are clear. Ethmoid and sphenoid sinuses are clear. Frontal sinuses are clear. Mastoid aeration is normal and symmetric. Middle ear cavities are aerated bilaterally. The bony nasal septum deviates to the right inferiorly and anteriorly with a small septal beak. IMPRESSION: Mild soft tissue swelling the left frontal and left male are periorbital soft tissues. No abscess, sinusitis, or other acute abnormality. Rightward nasal septal deviation. TTE: 1. Mildly dilated left ventricle at basal level. Normal LV wall thickness. Akinesis of the basal posterior LV segment with probably normal LV wall motion and wall thickening elsewhere. Mild reduction of overall LV systolic function. LVEF 50% by visual assessment. 2. Severe left atrial dilatation by left atrial volume index. 3. Moderate aortic valve sclerosis of a 3-cuspid aortic valve. No aortic stenosis or regurgitation. 4. Mild dilatation of the aortic root at the level of the sinuses of Valsalva. 5. Suggestive of mild elevation of estimated right ventricle systolic pressure.Normal right ventricle size and systolic function. 6. No pericardial effusion. PROGNOSIS:Good ACTIVITY: As tolerated DIET: 2g sodium DISCHARGE PLAN: Home with close PCP follow up. On valcyclovir. DISPOSITION: Home with services DISCHARGE INSTRUCTIONS: Home with close PCP follow up. On valcyclovir. ITEMS TO FOLLOWUP ON ON OUTPATIENT: Shingles resolution L Preorbital involvement of zoster DISCHARGE CONDITION: Stable TIME SPENT ON DISCHARGE: 45 minutes. Vital Signs/I&Os Vital Signs Date Time Temp Pulse Resp B/P (MAP) Pulse Ox O2 Delivery O2 Flow Rate FiO2 04/21/21 08:36 70 152/72 04/21/21 08:30 97.0 18 97 Room Air I&O- Last 24 Hours up to 6 AM 04/21/21 06:00 Intake Total 360 ml Output Total 1000 ml Balance -640 ml Microbiology Microbiology 04/15/21 Blood Culture - Final, Complete NO GROWTH AFTER 5 DAYS Discharge Medications Scheduled Abiraterone Acetate (Zytiga) 250 Mg Tablet, 1,000 MG PO DAILY, (Reported) Allopurinol (Zyloprim) 300 Mg Tablet, 300 MG PO DAILY, (Reported) Amitriptyline HCl (Amitriptyline HCl) 25 Mg Tablet, 25 MG PO QHS Apixaban (Eliquis) 5 Mg Tablet, 5 MG PO BID Aspirin (Aspirin) 325 Mg Tablet, 325 MG PO DAILY, (Reported) Bicalutamide (Bicalutamide) 50 Mg Tablet, 50 MG PO DAILY, (Reported) Enalapril Maleate (Enalapril Maleate) 20 Mg Tablet, 20 MG PO DAILY, (Reported) Fentanyl (Fentanyl) 100 Mcg Patch.td72, 100 MCG TD Q3D, (Reported) Furosemide (Furosemide) 20 Mg Tablet, 40 MG PO DAILY, (Reported) Gabapentin (Gabapentin) 100 Mg Capsule, 2 CAP PO TID Hydralazine HCl (Hydralazine HCl) 25 Mg Tablet, 25 MG PO DAILY, (Reported) Hydrocodone/Acetaminophen (Hydrocodone-Acetamin 10-325 mg) 1 Each Tablet, 1 TAB PO Q4H, (Reported) Lidocaine (Lidocaine) 5% Adh..patch, 0 PATCH TD DAILY Metoprolol Succinate (Metoprolol Succinate) 100 Mg Tab.er.24h, 100 MG PO DAILY, (Reported) Omeprazole (Omeprazole) 40 Mg Capsule.dr, 40 MG PO BID, (Reported) Potassium Chloride (Potassium Chloride) 10 Meq Tab.er.prt, 10 MEQ PO DAILY, (Reported) Prednisone (Prednisone) 5 Mg Tablet, 5 MG PO BID, (Reported) Rosuvastatin Calcium (Crestor) 10 Mg Tablet, 10 MG PO DAILY, (Reported) Tamsulosin HCl (Flomax) 0.4 Mg Capsule, 0.4 MG PO DAILY, (Reported) Valacyclovir HCl (Valacyclovir) 500 Mg Tablet, 1,000 MG PO Q8H Verapamil HCl (Verapamil ER) 120 Mg Tablet.er, 120 MG PO BID, (Reported) Scheduled PRN Albuterol Sulfate (Ventolin Hfa) 18 Gm Hfa.aer.ad, 2 PUFFS INH QID PRN for DYSPNEA, (Reported) Allergies Coded Allergies: No Known Allergies (Unverified , 04/15/21) MARICARMEN DRIVER MD April 21, 2021 08:49
[2021-04-21] MEDS ORDERED: HYDR-4517 PO (11:58)
[2021-04-21 12:50] VITALS: BP 80/42
[2021-04-21] MEDS ORDERED: valACYclovir HCL 500 MG TAB PO SCH (14:00)
[2021-04-21 14:45] VITALS: BP 84/44
[2021-04-21] MEDS ORDERED: METO1TAB7 PO (15:02)
== END 2021-04-21 16:40 | disposition home health service (06) | DRG 124 ==
LOC: M PCU 20:30
PROVIDERS: ADMIT Internal Medicine; ATTEND Internal Medicine
DX: B02.31 Zoster conjunctivitis (principal); G92 Toxic encephalopathy; I48.20 Chronic atrial fibrillation, unspecified; C79.51 Secondary malignant neoplasm of bone; E87.1 Hypo-osmolality and hyponatremia; H05.012 Cellulitis of left orbit; I10 Essential (primary) hypertension; J44.9 Chronic obstructive pulmonary disease, unspecified; C61 Malignant neoplasm of prostate; Z66 Do not resuscitate; I25.10 Atherosclerotic heart disease of native coronary artery without angina pectoris; K21.9 Gastro-esophageal reflux disease without esophagitis; T40.2X5A Adverse effect of other opioids, initial encounter; M54.2 Cervicalgia; I65.21 Occlusion and stenosis of right carotid artery; E78.5 Hyperlipidemia, unspecified; R51.9 Headache, unspecified; Z90.49 Acquired absence of other specified parts of digestive tract; Z87.891 Personal history of nicotine dependence; Z79.82 Long term (current) use of aspirin; Z79.52 Long term (current) use of systemic steroids; Z79.891 Long term (current) use of opiate analgesic; Z79.899 Other long term (current) drug therapy